=== PATIENT | female | born 1980 | race Caucasian/White ===

== ENCOUNTER 2025-01-18 10:30 | Emergency (ER) | payer MEDICAID ==
[~2025-01-18] VITALS: Ht 157.5 cm; Wt 72.7 kg
[2025-01-18 10:37] VITALS: TEMP 98.2
--- NOTE | 2025-01-18 10:50 | Physician Documentation ---
History of Present Illness ~ General Chief Complaint: Multiple Medical Complaints Stated Complaint: URINARY COMPLICATIONS Time Seen by MD: 11:23 History of Present Illness Initial Comments This is a 44-year-old female with a history of hypertension and frequent UTIs who presents with urinary discomfort and request for refill of antihypertensive medication. Patient reports that she is new to the area and unable to refill her previous prescription for high blood pressure and reports a headache that she believes is from high blood pressure, patient additionally reports urinary urgency and discomfort with urination. Patient reports no other acute symptoms or concerns including no fever or flank pain. Medication Reconciliation Allergies: Coded Allergies: hydromorphone (Verified Allergy, Unknown, 01/18/25) tramadol (Verified Allergy, Unknown, 01/18/25) Scheduled Cephalexin*Monohydrate* (Keflex*), 1 CAP PO QID Valsartan (Valsartan), 1 TAB PO DAILY Past Medical History Past Medical History: Hypertension, UTI Review of Systems ROS As stated above in the HPI, otherwise all systems are reviewed and negative. Physical Exam Physical Exam Vital Signs: Temperature: 98.2, Source: Temporal, Heart Rate: 98, Respiratory Rate: 16, BP: 203/121, Pulse Oximetry: 100, Weight: 72.700 Oxygen Flow Rate: 0 Physical Exam VITALS: Reviewed and as above. GENERAL: Alert, nontoxic appearing, no apparent distress. RESPIRATORY: No increased work of breathing, no respiratory distress, speaking in full clear sentences, clear lung sounds all aquino CV: Rate and rhythm no murmur BACK: No CVA tenderness GI: Nontender to palpation Progress Results/Orders Results/Orders Orders - EDGAR TERRY Cult Urine + [address] [address] (01/18/25 11:37) Completed Orders - EDGAR TERRY Hcg, Ur Ql (01/18/25 10:43) Ua W/Microscopic, Cult If Ind (01/18/25 10:44) Vital Signs 01/18/25 01/18/25 01/18/25 10:37 11:30 12:24 Temp 98.2 Pulse 98 88 79 Resp 16 16 6 B/P (MAP) 203/121 167/103 (124) 186/106 Pulse Ox 100 98 97 O2 Flow Rate 0 0 Laboratory Tests Test 01/18/25 10:44 Urine Specimen Description Cln catch midstream Urine Color Yellow Urine Clarity Clear Urine pH 6.0 Urine Specific [place] >=1.030 Urine Protein Negative Urine Glucose (UA) Negative Urine Ketones Negative Urine Occult Blood Negative Urine Nitrite Negative Urine Bilirubin Negative Urine Urobilinogen 0.2 Urine Leukocyte Esterase Trace H Urine RBC 3-10 Urine WBC 30-50 H Urine Squamous Epithelial Cells Moderate Urine Bacteria 1+ Urine Culture Indicated Indicated Volume Urine Centrifuged 10 ml Urine HCG, Qualitative Negative Urine Comment Microbiology Date/Time Source Procedure Growth Status 01/18/25 11:37 Urine Clean Catch Midstream Urine Culture - Preliminary Culture received. Resulted Medical Decision Making Findings This 44-year-old female with a history of hypertension and frequent UTIs presented with urinary discomfort and a request for refill of hypertensive medications, on triage patient's blood pressure was quite elevated though once placed in room blood pressure lowered without medication, as patient is on quite a high dose of valsartan and has not been on medication for some time I believe this to be caused of hypertension, while blood pressure is elevated it was not elevated to level that would constitute a hypertensive emergency. Additionally reassuring no other symptoms to suggest end-organ damage. Patient's physical exam was benign without abdominal tenderness or CVA tenderness. Urinalysis demonstrated evidence of urinary tract infection and with history and physical this is consistent with uncomplicated urinary tract infection, given no CVA tenderness or fever I have low suspicion for pyelonephritis. Patient will be treated with course of oral antibiotics and prescription for valsartan refilled. Patient is otherwise well-appearing and appropriate for outpatient follow up. Patient provided home care instructions, return to care precautions, and follow up instructions which she verbalized understanding of. Differential Diagnosis Hypertensive emergency, pyelonephritis, urolithiasis, STI, appendicitis, ovarian torsion, PID, urinary retention, urinary obstruction Departure Time of Disposition: 11:57 Disposition: 01 HOME / SELF CARE / HOMELESS Impression: Primary Impression: Urinary tract infection Qualified Codes: N30.00 - Acute cystitis without hematuria Additional Impressions: HTN (hypertension) Qualified Codes: I10 - Essential (primary) hypertension Medication refill Condition: Improved Discharge Instructions: Urinary Tract Infection, Adult Additional Instructions: Please take antibiotics as prescribed, please take your high blood pressure medication as previously prescribed. Please follow up with your primary care provider in the next few days. Please return to the emergency department for any new or worsening concerning symptoms. Referrals: NO PRIMARY CARE PROVIDER (PCP) Prescriptions Cephalexin*Monohydrate* (Keflex*) 500 Mg Capsule 1 CAP PO QID for 7 Days, #28 CAP Prov: EDGAR TERRY 01/18/25 Valsartan (Valsartan) 320 Mg Tablet 1 TAB PO DAILY for 30 Days, #30 TAB 0 Refills Prov: EDGAR TERRY 01/18/25 Education Educated: Patient Educated regarding: diagnosis, treatment, prognosis, need for follow up Signature Scribe Signature: No scribe Attestation: The note accurately reflects work and decisions made by me.OLYA Hung 01/19/25 09:35 EDGAR TERRY Jan 18, 2025 10:50
[2025-01-18 11:25] LABS: URINE HCG NEGATIVE (NEG)
[2025-01-18 11:28] LABS: LEUKOCYTE ESTERASE ,URINE TRACE (Neg); NITRITES, URINE NEGATIVE (Neg); OCCULT BLOOD,URINE NEGATIVE (Neg)
[2025-01-18 11:34] LABS: UA COLLECTION TYPE CLN CATCH MIDSTREAM
[2025-01-18 11:35] LABS: SQUAMOUS EPITHELIAL CELL,UR MODERATE /LPF (FEW)
[2025-01-18] MEDS ORDERED: CEPH-585 PO (12:04)
[2025-01-18] MEDS ORDERED: VALS320T17 PO (12:04)
[2025-01-18 12:24] VITALS: BP 186/106; PULSE 79; RESP 6; O2SAT 97
== END 2025-01-18 12:25 | disposition home or self-care (01) ==
LOC: ER 10:31
DX: N39.0 Urinary tract infection, site not specified (principal); I10 Essential (primary) hypertension; Z88.5 Allergy status to narcotic agent
CPT/HCPCS: 81001; 81025; 87088; 99283

== ENCOUNTER 2025-03-14 09:34 | Emergency (ER) | payer MEDICAID ==
[~2025-03-14] VITALS: Ht 157.5 cm; Wt 71.0 kg
[~2025-03-14 09:34] MED LIST: VALS320T17 PO
[2025-03-14 09:38] VITALS: BP 206/117; PULSE 106; RESP 18; O2SAT 100
--- NOTE | 2025-03-14 09:45 | Physician Documentation ---
HPI ~ General Chief Complaint: Medication Refill Stated Complaint: MED CLEARANCE HIGH BLOOD PRESSURE Time Seen by MD: 09:43 Primary Medical Doctor: NONE History of Present Illness HPI Comments 44-year-old female who presents to the emergency department seeking medical clearance to participate in [facility]. Reports that she is on 320 mg of valsartan however has not had her medications for 1-2 weeks. Has had intermittent episodes of vertigo without associated chest pain, palpitations dependent edema and/or syncope. Reports while on her medication she does well. She seeking medication refill. Medication Reconciliation Allergies: Coded Allergies: hydromorphone (Verified Allergy, Unknown, 03/14/25) tramadol (Verified Allergy, Unknown, 03/14/25) Scheduled Valsartan (Valsartan), 1 TAB PO DAILY Discontinued Medications Valsartan (Valsartan), 1 TAB PO DAILY Discontinued Reason: Prescription changed Past Medical History Past Medical History: Hypertension, UTI Review of Systems All Other Systems at this time: Reviewed and Negative Neurological: Reports: dizziness Physical Exam Physical Exam Vital Signs: RN Vital Signs have been reviewed: Yes, Temperature: 98.2, Source: Oral, Heart Rate: 106, Respiratory Rate: 18, BP: 206/117, Pulse Oximetry: 100, Weight: 71.000 Oxygen Flow Rate: 0 General Appearance: alert, WD/WN, no apparent distress Pupils/EOM/Fundus: PERRLA Neck: non-tender Respiratory: lungs clear Cardiovascular: normal peripheral pulses, regular rate, rhythm, no edema, no gallop, no JVD Back: normal inspection, no CVA tenderness Extremities: normal inspection Neurologic: oriented x4, auto leasing manager II-XII nml as tested Motor / Sensory: no motor deficit, no sensory deficit Thought/Hallucinations: normal thought pattern Affect: appropriate Skin: warm/dry Progress Results/Orders Results/Orders Vital Signs 03/14/25 09:38 Temp 98.2 Pulse 106 Resp 18 B/P (MAP) 206/117 Pulse Ox 100 O2 Flow Rate 0 Medical Decision Making Additional information obtaine: old records Findings 44-year-old female with a known history of poorly controlled high blood pressure. No current hypertensive urgency or emergency. We will provide patient is with medication request. She was discharged stable condition in the emergency department. Differential Dx:Considerations: Include: Adverse circumstances, Economic, Ps ychosocial, Medication refill, Medication non-compliance Departure Disposition: HOME / SELF CARE / HOMELESS Impression: Primary Impression: HTN (hypertension) Qualified Codes: I10 - Essential (primary) hypertension Additional Impression: Medication refill Condition: Stable Discharge Instructions: Medicine Refill at the Emergency Department Additional Instructions: Please obtain prescriptions and begin as directed. You have been Medically cleared & Best of luck with your program. Please establish with local primary care physician for additional management of high blood pressure. Thank you for visiting [facility] Emergency Department. Referrals: NO PRIMARY CARE PROVIDER (PCP) Prescriptions Valsartan (Valsartan) 320 Mg Tablet 1 TAB PO DAILY for 30 Days, #30 TAB 0 Refills Prov: MATTHEW KAPADIA 03/14/25 Education Educated: Patient Educated regarding: diagnosis, treatment Signature Scribe Signature: . Attestation: . MATTHEW KAPADIA Mar 14, 2025 09:45
[2025-03-14] MEDS ORDERED: VALS320T17 PO (09:46)
[2025-03-14 10:05] VITALS: TEMP 98.2
== END 2025-03-14 10:13 | disposition home or self-care (01) ==
LOC: ER 09:35
DX: I10 Essential (primary) hypertension (principal); Z88.5 Allergy status to narcotic agent; Z76.0 Encounter for issue of repeat prescription
CPT/HCPCS: 99282

== ENCOUNTER 2025-03-23 15:23 | Emergency (ER) | payer MEDICAID ==
[~2025-03-23] VITALS: Ht 157.5 cm; Wt 72.1 kg
[~2025-03-23 15:23] MED LIST changes: +HYDR12.55 PO; +LORA-269 PO; +NICO-731 TOP; +NITR0.4T51 SL
--- NOTE | 2025-03-23 15:47 | Physician Documentation ---
History of Present Illness ~ Chief Complaint: Medical Clearance Stated Complaint: MED CLEARANCE Time Seen by MD: 15:39 OK to notify your PCP?: Yes Primary Medical Doctor: NONE Source: patient Mode of Arrival: POV Exam Limitations: no limitations HPI Requesting medical clearance for hypertension for [facility]. She reports that her blood pressure is elevated and she was told she had to come here for clearance. She does take blood pressure medication valsartan as prescribed. She is awaiting an appointment with her primary care provider to have dose adjustment. She denies any headache, bloody nose, shortness of breath or chest pain. Reports that if she takes an Ativan for anxiety at typically lowers her blood pressure. Tetanus within 5 years?: Yes Medication Reconciliation Allergies: Coded Allergies: hydromorphone (Verified Allergy, Unknown, 03/23/25) tramadol (Verified Allergy, Unknown, 03/23/25) Scheduled Hydrochlorothiazide (Hydrochlorothiazide), 1 TAB PO DAILY Nicotine (Nicotine Patch), 1 PATCH TOP DAILY Valsartan (Valsartan), 1 TAB PO DAILY Scheduled PRN Lorazepam (Ativan), 1 TAB PO Q12H PRN PRN for anxiety Nitroglycerin SL* (Nitrostat SL*), 1 TAB SL UD PRN for chest pain Discontinued Medications Lorazepam (Ativan), 1 TAB PO Q12H PRN PRN for anxiety Discontinued Reason: Prescription changed Lorazepam (Ativan), 1 TAB PO Q12H PRN PRN for anxiety Past Medical History Past Medical History: Hypertension, UTI Review of Systems All Other Systems at this time: Reviewed and Negative Physical Exam Vital Signs: RN Vital Signs have been reviewed: Yes, Temperature: 97.2, Source: Temporal, Heart Rate: 100, Respiratory Rate: 18, BP: 195/103, Pulse Oximetry: 99, Weight: 72.100 Oxygen Flow Rate: 0 Pulse Oximetry Reflects: adequate oxygenation Physical Exam General: Alert, no distress. HEENT: No injection, moist mucous membranes. Neck: Full range of motion. Respiratory: No respiratory distress, equal chest rise and fall. Chest: No accessory muscle use. Cardiovascular: Regular rate and rhythm. Gastrointestinal: Nondistended. Extremities: Normal range of motion, no deformity. Neurologic: Oriented x4. Psychiatric: Normal mood and affect. Skin: Normal color, warm and dry. Progress Results/Orders Reviewed/noted all lab results: Yes Results/Orders Orders - NATTY BALLESTEROS Clonidine Tablet (Catapres Tablet) (03/23/25 15:40) Vital Signs 03/23/25 15:32 Temp 97.2 Pulse 100 Resp 18 B/P (MAP) 195/103 Pulse Ox 99 O2 Flow Rate 0 Medical Decision Making Additional information obtaine: old records Findings Pressure was elevated in triage. She is asymptomatic. She is taking valsartan as prescribed and awaiting an appointment with her doctor to have an adjustment of medications. [facility] which takes her blood pressure every morning and told her she had to come here to get cleared. I gave a 1 time dose of clonidine to help lower BP. Patient requested Ativan to help with her blood pressure, I declined. She is otherwise medically cleared to return to the program. Differential Dx:Considerations: Include: Intoxication-Alcohol, Intoxication- Other drug, Personality disorder, Substance abuse disorder, Alcohol withdrawl syndrom, Encephalopathy Departure Disposition: 01 HOME / SELF CARE / HOMELESS Impression: Primary Impression: General medical exam Condition: Stable Discharge Instructions: Medical Screening Exam Additional Instructions: Today your blood pressure was elevated in the ER but you are asymptomatic. We gave a 1 time dose of clonidine to help lower your blood pressure. Please fo llow up with her primary care provider regarding medication management next week. Return back here for any new or worsening symptoms. Referrals: NO PRIMARY CARE PROVIDER (PCP) Education Educated: Patient Educated regarding: diagnosis, treatment, prognosis, need for follow up Additional Comment Medical Screen Exam This patient recieved a medical screening examination. After reviewing the individual's medical complaints with presenting symptoms and performing an appropriate physical examination, it was determined that no immediate life- threatening emergency medical condition is present. This individual is also not a women having contractions. Signature Scribe Signature: . Attestation: Scribed for Natty Ballesteros by Natty Childress NP . 03/23/25 15:47 Parts of this note were created using [employer] voice recognition software program. While efforts were made to correct any mistakes made by this voice recognition software program, nonsensical phrases may remain in this note. In addition, there may be errors and syntax, grammar, content and spelling. NATTY BALLESTEROS Mar 23, 2025 15:47
[2025-03-23 17:20] VITALS: BP 139/90; PULSE 80; RESP 16; TEMP 97.2; O2SAT 99
[2025-03-24] MEDS ORDERED: HYDR25TA5 PO (18:38)
[2025-03-24] MEDS ORDERED: AMLO10TA PO (19:36)
[2025-04-10] MEDS ORDERED: CLOT10TR5 PO (13:05)
== END 2025-03-23 17:20 | disposition home or self-care (01) ==
LOC: ER 15:23
DX: Z00.00 Encounter for general adult medical examination without abnormal findings (principal); I10 Essential (primary) hypertension; Z88.5 Allergy status to narcotic agent; Z87.440 Personal history of urinary (tract) infections; Z79.899 Other long term (current) drug therapy
CPT/HCPCS: 99282; 99283

== ENCOUNTER 2025-03-24 18:04 | Emergency (ER) | payer MEDICAID ==
[~2025-03-24] VITALS: Ht 157.5 cm; Wt 73.2 kg
--- NOTE | 2025-03-24 18:17 | Physician Documentation ---
History of Present Illness ~ Chief Complaint: Hypertension Stated Complaint: BLOOD PRESSURE/ABD PAIN Time Seen by MD: 18:18 OK to notify your PCP?: Yes Primary Medical Doctor: NONE Source: patient Mode of Arrival: POV Exam Limitations: no limitations HPI Multiple medical complaints. Patient here for hypertension and possible low back pain. She takes valsartan daily. She was here yesterday for the same thing and treated with clonidine. She does have a prescription for lorazepam to help with her anxiety and took 1 today as well as a nitroglycerin to help lower her blood pressure. She denies any headache, bloody nose, chest pain or shortness of breath. She reports that she is at [employer] and they take her blood pressure every morning and it has been high multiple times this week. She has yet to see your primary care provider to have a medication adjustment. She reports having increased urinary urgency. No saddle anesthesia, loss of bowel or bladder. No known injuries to her low back but reports waking up and having low back pain which caused her legs to shake. Medication Reconciliation Allergies: Coded Allergies: hydromorphone (Verified Allergy, Unknown, 03/24/25) tramadol (Verified Allergy, Unknown, 03/24/25) Scheduled Amlodipine Besylate (Amlodipine Besylate), 1 TABLET PO DAILY Hydrochlorothiazide (Hydrochlorothiazide), 1 TAB PO DAILY Hydrochlorothiazide (Hydrochlorothiazide), 1 TAB PO DAILY Nicotine (Nicotine Patch), 1 PATCH TOP DAILY Valsartan (Valsartan), 1 TAB PO DAILY Scheduled PRN Lorazepam (Ativan), 1 TAB PO Q12H PRN PRN for anxiety Nitroglycerin SL* (Nitrostat SL*), 1 TAB SL UD PRN for chest pain Discontinued Medications Lorazepam (Ativan), 1 TAB PO Q12H PRN PRN for anxiety Discontinued Reason: Prescription changed Lorazepam (Ativan), 1 TAB PO Q12H PRN PRN for anxiety Past Medical History Past Medical History: Hypertension, UTI, Chronic Pain, Chronic Back Pain Past Surgical History: noncontributory Drug Use: methamphetamine Lives with: Other Lives In: Other Occupation: unemployed Review of Systems All Other Systems at this time: Reviewed and Negative Neurological: Reports: see HPI Physical Exam Vital Signs: RN Vital Signs have been reviewed: Yes, Temperature: 98.4, Source: Temporal, Heart Rate: 125, Respiratory Rate: 16, BP: 195/122, Pulse Oximetry: 9 8, Weight: 73.200 Oxygen Flow Rate: 0 Physical Exam General: Alert, no apparent distress. HEENT: moist mucous membranes. Neck: Full range of motion. Respiratory: No respiratory distress speaking in full sentences Chest: No accessory muscle use. Cardiovascular: Appears well perfused Neurologic: Oriented x4. Psychiatric: Anxious Skin: Normal color, warm and dry. No edema, no ecchymosis. Progress Results/Orders Results/Orders Completed Orders - TAMRA CABA [facility] STAFF PHARMACIST Urinalysis, Cult If Indicated (03/24/25 18:30) Clonidine Tablet (Catapres Tablet) (03/24/25 18:40) Cyclobenzaprine Tablet (Flexeril Tablet) (03/24/25 18:40) Amlodipine Tablet (Norvasc Tablet) (03/24/25 19:35) Medications Received in ER Medications (Trade) Dose Ordered Sig/Ji Route PRN Reason Start Time Stop Time Status Last Admin Dose Admin (Catapres tablet) 0.1 mg ONCE ONCE PO 03/24/25 18:40 03/24/25 18:41 DC 03/24/25 18:45 0.1 MG (Flexeril tablet) 10 mg ONCE ONCE PO 03/24/25 18:40 03/24/25 18:41 DC 03/24/25 18:45 10 MG (Norvasc tablet) 5 mg ONCE ONCE PO 03/24/25 19:35 03/24/25 19:36 DC 03/24/25 19:53 5 MG Vital Signs 03/24/25 03/24/25 03/24/25 03/24/25 18:08 18:23 18:23 19:01 Temp 98.4 Pulse 125 118 105 Resp 16 18 18 16 B/P (MAP) 195/122 179/122 (141) 182/112 (135) Pulse Ox 98 99 99 O2 Flow Rate 0 0 0 03/24/25 03/24/25 03/24/25 19:45 19:53 20:05 Pulse 80 112 86 Resp 16 18 B/P (MAP) 176/89 (118) 166/97 (120) Pulse Ox 99 99 Laboratory Tests Test 03/24/25 18:57 Urine Specimen Description Non-specified Urine Color Yellow Urine Clarity Clear Urine pH 6.5 Urine Specific [place] 1.015 Urine Protein Negative Urine Glucose (UA) Negative Urine Ketones Negative Urine Occult Blood Negative Urine Nitrite Negative Urine Bilirubin Negative Urine Urobilinogen 0.2 Urine Leukocyte Esterase Negative Urine Culture Indicated Not ind Volume Urine Centrifuged 10 ml Urine Comment Medical Decision Making Additional information obtaine: old records Findings Patient had an EKG in workup yesterday for the identical issue of hypertension. Patient is currently on 320 mg of valsartan daily and 12.5 mg of hydrochlorothiazide. Patient came in with a blood pressure in the 190s systolic at [employer] [employer] [facility] they check blood pressure twice a day. She has had to come in to be medically cleared with high blood pressure. Patient has history of hypertension. Patient denies headache dizziness chest pain or shortness of breath. Patient does have some pelvic pain chronic lumbar back pain she states she had a spinal fracture years ago. Patient is having pain when changing positions to standing having almost a spasm she describes in her groin in her lower extremities with standing started a couple of days ago. 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 It is advised to maintain appointment to establish primary care. As to your spasm type pain and chronic lumbar pain history continue to take Tylenol or ibuprofen as needed for [id number] pain. Referrals: NO PRIMARY CARE PROVIDER (PCP) Prescriptions Amlodipine Besylate (Amlodipine Besylate) 10 Mg Tablet 1 TABLET PO DAILY, #30 TABLET Prov: TAMRA CABA NP 03/24/25 Hydrochlorothiazide (Hydrochlorothiazide) 25 Mg Tab 1 TAB PO DAILY for 30 Days, #30 TAB 0 Refills Prov: TAMRA CABA [facility] STAFF PHARMACIST 03/24/25 Education Educated: Patient Educated regarding: diagnosis, treatment, need for follow up Additional Comment Medical Screen Exam This patient recieved a medical screening examination. After reviewing the ind ividual's medical complaints with presenting symptoms and performing an appropriate physical examination, it was determined that no immediate life- threatening emergency medical condition is present. This individual is also not a women having contractions. Signature Scribe Signature: No scribe Attestation: The note accurately reflects work and decisions made by me.Tamra Caba - OLYA 03/24/25 18:37 FERNIE WATTS Mar 24, 2025 18:17 TAMRA CABA NP Mar 24, 2025 18:38
[2025-03-24] MEDS ORDERED: HYDR25TA5 PO (18:38)
[2025-03-24 19:36] LABS: LEUKOCYTE ESTERASE ,URINE NEGATIVE (Neg); NITRITES, URINE NEGATIVE (Neg); OCCULT BLOOD,URINE NEGATIVE (Neg)
[2025-03-24] MEDS ORDERED: AMLO10TA PO (19:36)
[2025-03-24 19:42] LABS: UA COLLECTION TYPE NON-SPECIFIED
[2025-03-24 20:27] VITALS: BP 160/78; PULSE 80; RESP 16; TEMP 98.1; O2SAT 99
== END 2025-03-24 20:36 | disposition home or self-care (01) ==
LOC: ER 18:05
DX: I10 Essential (primary) hypertension (principal); F41.9 Anxiety disorder, unspecified; F15.90 Other stimulant use, unspecified, uncomplicated; Z88.5 Allergy status to narcotic agent
CPT/HCPCS: 81003; 99285

== ENCOUNTER 2025-03-30 09:51 | Emergency (ER) | payer MEDICAID ==
[~2025-03-30] VITALS: Ht 157.5 cm; Wt 72.7 kg
[~2025-03-30 09:51] MED LIST changes: +AMLO10TA PO; +HYDR25TA5 PO
[2025-03-30 09:57] VITALS: BP 138/83; PULSE 99; RESP 16; TEMP 98; O2SAT 98
[2025-04-10] MEDS ORDERED: CLOT10TR5 PO (13:05)
== END 2025-03-30 11:37 | disposition left against medical advice (07) ==
LOC: ER 09:51
DX: Z00.8 Encounter for other general examination (principal)
CPT/HCPCS: 99281

== ENCOUNTER 2025-03-31 19:58 | Emergency (ER) | payer MEDICAID ==
[~2025-03-31] VITALS: Ht 157.5 cm; Wt 72.7 kg
[2025-03-31 20:09] VITALS: TEMP 97.4
--- NOTE | 2025-03-31 20:55 | Physician Documentation ---
History of Present Illness General Chief Complaint: Shortness of Breath Stated Complaint: SOB Time Seen by MD: 20:47 Primary Medical Doctor: NONE History of Present Illness Initial Comments This is a 44-year-old female with a known history of asthma presents for evaluation of shortness a breath and wheezing. She feels this is similar to prior asthma exacerbations. No chest pain. Did not attempt to treat it because she states that she lives in the hotel and I have nothing. She worries that they have black mold in the bathroom and that is triggering her exacerbation. Denies any fever or chills. Denies any other symptoms. Medication Reconciliation Allergies: Coded Allergies: hydromorphone (Verified Allergy, Unknown, 03/31/25) tramadol (Verified Allergy, Unknown, 03/31/25) Scheduled Amlodipine Besylate (Amlodipine Besylate), 1 TABLET PO DAILY Hydrochlorothiazide (Hydrochlorothiazide), 1 TAB PO DAILY Hydrochlorothiazide (Hydrochlorothiazide), 1 TAB PO DAILY Nicotine (Nicotine Patch), 1 PATCH TOP DAILY Valsartan (Valsartan), 1 TAB PO DAILY Scheduled PRN Lorazepam (Ativan), 1 TAB PO Q12H PRN PRN for anxiety Nitroglycerin SL* (Nitrostat SL*), 1 TAB SL UD PRN for chest pain Past Medical History Past Medical History: Hypertension, UTI, Chronic Pain, Chronic Back Pain Past Surgical History: noncontributory Drug Use: methamphetamine Lives with: Other Lives In: Other Occupation: unemployed Review of Systems ROS 10 point review of systems was performed and unless noted above in HPI is neg ative for acute process/complaint. Physical Exam Physical Exam Vital Signs: Temperature: 97.4, Source: Temporal, Heart Rate: 116, Respiratory Rate: 18, BP: 131/86, Pulse Oximetry: 99, Weight: 72.700 Physical Exam GENERAL: Awake, alert, oriented, GCS 15, no apparent distress, non-toxic appearing, answers questions, follows commands appropriately. Examined in bed 4. HEENT: Atraumatic, normocephalic, pupils equal, extraocular muscles intact, sclerae anicteric, mucus membranes moist, oropharynx is clear, no stridor. NECK: supple, full active range of motion, trachea midline, no thyromegaly, no lymphadenopathy, no JVD. CARDIOVASCULAR: Tachycardic and regular rate/rhythm, no murmurs/gallops/rubs, Pulses are 2+ in all extremities and symmetric. Capillary refill less than 2 seconds. PULMONARY: Nonlabored, decreased air movement ,no respiratory distress, speaking in full sentences, faint bilateral expiratory wheezing, no ronchi, no rales, no accessory muscle use. GASTROINTESTINAL: Soft, non-tender, non-distended, normal active bowel sounds, no organomegaly, no pulsatile masses, no CVA tenderness. NEUROLOGIC: Lucid with normal mental status. Normal facial symmetry. Moves all extremities symmetrically and with purpose. No truncal ataxia. Speech is fluid without evidence of dysarthria or aphasia, no focal deficits appreciated. MUSCULOSKELETAL: There is full range of motion of all extremities. There is no joint pain or joint swelling or joint erythema. There is no muscle pain or tenderness or swelling. EXTREMITIES: warm, well-perfused, no cyanosis, no clubbing, no edema, no acute deformities. Skin: warm, dry, no rashes or lesions, no jaundice, no petechiae orpurpura. No ecchymosis. PSYCHIATRIC: Normal affect, normal insight, normal concentration. Focused exam: [] Progress Results/Orders Results/Orders Orders - OUMAR DIAMOND DO * Rt Notification Q1H (03/31/25 20:49) ESR (03/31/25 20:49) Chest,Single View (03/31/25 20:49) Hs Troponin I W Calculations (03/31/25 22:49) Covid19 Binax Poc Result Entry (03/31/25 20:49) Influenza Type A&B Rapid Test (03/31/25 20:49) Completed Orders - OUAMR DIAMOND DO Prednisone Tablet (Prednisone Tablet) (03/31/25 20:50) Albuterol 2.5mg/3ml Nebule (Proventil 2. (03/31/25 20:50) Electrocardiogram (03/31/25 20:49) Cbc/Diff (03/31/25 20:49) D-Dimer (03/31/25 20:49) C-Reactive Protein (03/31/25 20:49) Chest,Single View (03/31/25 20:49) CMP (03/31/25 20:49) Hs Troponin I W Calculations (03/31/25 20:49) Hcg, Ur Ql (03/31/25 21:17) Medications Received in ER Medications (Trade) Dose Ordered Sig/Ji Route PRN Reason Start Time Stop Time Status Last Admin Dose Admin (predniSONE tablet) 60 mg ONCE ONCE PO 03/31/25 20:50 03/31/25 20:52 DC 03/31/25 21:28 60 MG (Proventil 2.5 MG/3ML nebule) 10 mg ONCE ONCE NEB 03/31/25 20:50 03/31/25 20:52 DC 03/31/25 21:42 10 MG Vital Signs 03/31/25 03/31/25 03/31/25 03/31/25 20:09 21:31 21:46 21:55 Temp 97.4 Pulse 116 94 98 Resp 18 17 18 18 B/P (MAP) 131/86 136/81 (99) Pulse Ox 99 100 98 O2 Delivery Room Air* O2 Flow Rate 0 0 FiO2 21 03/31/25 21:57 Pulse 106 Resp 18 Pulse Ox 100 O2 Delivery Room Air* O2 Flow Rate 0 FiO2 21 Laboratory Tests Test 03/31/25 21:13 03/31/25 21:18 White Blood Count 13.2 H Red Blood Count 4.40 Hemoglobin 13.0 Hematocrit 38.0 Mean Corpuscular Volume 86.4 Mean Corpuscular Hemoglobin 29.6 Mean Corpuscular Hemoglobin Concent 34.3 Red Cell Distribution Width 13.8 Platelet Count 351 Mean Platelet Volume 8.2 Neutrophils (%) (Auto) 69.1 Lymphocytes (%) (Auto) 22.7 Monocytes (%) (Auto) 6.7 Eosinophils (%) (Auto) 1.1 Basophils (%) (Auto) 0.4 Neutrophils # (Auto) 9.1 H Lymphocytes # (Auto) 3.0 Monocytes # (Auto) 0.9 Eosinophils # (Auto) 0.1 Basophils # (Auto) 0.1 CBC Comment D-Dimer 0.36 D-Dimer Comment Sodium Level 139 Potassium Level 4.1 Chloride Level 104 Carbon Dioxide Level 29.0 Anion Gap 6 L Blood Urea Nitrogen 21 H Creatinine 0.93 H Estimated GFR/1.73 m2 65 BUN/Creatinine Ratio 22.6 H Glucose Level 104 Calcium Level 9.0 Total Bilirubin 0.2 Aspartate Amino Transf (AST/SGOT) 18 Alanine Aminotransferase (ALT/SGPT) 32 Alkaline Phosphatase 123 H Troponin I High Sensitivity 5 C-Reactive Protein 2.63 H Total Protein 7.5 Albumin 3.5 Globulin 4.0 Albumin/Globulin Ratio 0.9 L Chemistry Comments Urine HCG, Qualitative Negative Medical Decision Making Additional information obtaine: N/A Findings Facility Status: ED Holds, RME process The plan was discussed with the patient, who demonstrates clear understanding of the plan and is in agreement with the plan unless otherwise noted in the chart. All questions have been answered, all concerns were addressed unless otherwise documented. I was available throughout their ED stay for frequent reassessment and questions. Differential Diagnoses (considered and possible or likely): [Asthma/COPD exacerbation, bronchitis, COVID, influenza, RSV, less likely ACS, less likely bacterial pneumonia, less likely CHF, unlikely PE] ??Differential Diagnoses (considered and unlikely, not requiring evaluation currently): [See above. No evidence of trauma, pneumothorax is unlikely.] MDM Data Please see [facility] for the following: Independent Historians and external Records Review. Historian: [Patient] Independent Historians: ?[None] Medication Management: [Reviewed medication list] Social History and determinants: [Reviewed] Please see the body of the note for the following: Any independent interpret ations of ECG, imaging studies. All vitals signs/haemodynamics, ordered tests were independently reviewed and interpreted by myself. Nursing triage complaint and vitals reviewed, additional nursing notes were reviewed as available and I agree unless otherwise noted or documented in contradiction in the chart Vital Signs: Independently reviewed Labs: Independently interpreted Imaging: Independently interpreted Old Medical Records: Independently reviewed, see HPI for relevant summary and information Pulse Oximetry: [96%] interpreted as [normal on room air] by me [Casing Blower: Tachycardic Rate, Regular rhythm, no ectopy, sinus t achycardia. reviewed and interpreted by me] Additionally notably showing: [Hemodynamics reviewed. Not febrile, initially tachycardic, improved with the rest and fluids, no evidence of respiratory distress. CBC shows mild leukocytosis, no neutrophilic predominance. D-dimer is negative, decreased suspicion for PE. Chemistry shows elevated CRP, dehydration, normal troponin. She is not . ] Tests considered but not ordered include: [She is low risk for PE, CTA has been considerably but most likely weekend determine risk of PE by getting D-dimer] Social Determinants of Health Impact: [facility] [place] with limited access to healthcare due to below par ratio of patient to medical providers. [] Comorbid Conditions Impacting Present Evaluation and Care/Treatment: [COPD/asthma] Management Discussions with other Healthcare Providers: [None] Treatment and Disposition Medication Management (Given or considered): [Steroids and breathing treatment]. See EMR for details Consideration for Hospitalization/Escalation/Deescalation of Care: Admission for observation has been considered, [however the patient is able to tolerate p.o., their symptoms are controlled, they are able to rely on oral medications, and their chief complaint/diagnosis can be managed on outpatient basis.] ?ED Course:?[The patient improved after breathing treatment.] ?Shared decision making:?[Patient is hemodynamically stable for discharge home with follow with their primary care provider. [ ] Specific and cautious return precautions provided and discussed with full understanding. Any incidental findings were also discussed and follow up recommendations given. [] All questions answered. Patient/family were able to verbalize back return precautions. Patient/family agree to plan. Copies of imaging and laboratory studies were provided.] Code status:?FULL Please see the full Electronic Medical Record for full details of nursing documentation, medications list, other records of complete past medical history and conditions, vital signs, laboratory studies, and any radiologic study interpretations by radiologists. Portions of this note were completed using [employer] dictation software and as a result there may exist minor errors in spelling. I have reviewed elements of past family and social history and agree as included in note. Differential Diagnosis See body of the main note for differential diagnosis Departure Disposition: 01 HOME / SELF CARE / HOMELESS Impression: Primary Impression: Asthma exacerbation Condition: Improved Discharge Instructions: Asthma, Adult, [id number] Referrals: NO PRIMARY CARE PROVIDER (PCP) Prescriptions Albuterol Sulfate (Ventolin Hfa) 90 Mcg Hfa.aer.ad 2 PUFFS INH Q4HPRN PRN for wheezing for 30 Days, #18 GM 0 Refills Prov: OUMAR DIAMOND DO 04/01/25 Prednisone (Prednisone) 10 Mg Tablet 0 PO DAILY, #42 TABLET Take 6 tabs/day x2 days then 5 daily x2 days 4 daily x2 days 3 daily x2 days 2 daily x2 days 1 daily x2 days then stop. Prov: OUMAR DIAMOND DO 04/01/25 Education Educated: Patient Educated regarding: diagnosis, treatment, prognosis, need for follow up Signature Scribe Signature: No scribe Attestation: The note accurately reflects work and decisions made by me.Oumar Diamond, 03/31/25 20:55 OUMAR DIAMOND DO Mar 31, 2025 20:55
--- NOTE | 2025-03-31 21:14 | ELECTROCARDIOGRAPH REPORT ---
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 CARRIE Bean Measurements Intervals [place] Rate: 105 P: 60 [place]: 143 QRS: 42 QRSD: 73 T: 37 QT: 333 QTc: 441 Interpretive Statements Sinus tachycardia Anteroseptal infarct, old Electronically Signed On 04-02-2025 9:36:[address] CARRIE Bean Please click the below link to view image of tracing.
--- NOTE | 2025-03-31 21:24 | RADIOLOGY REPORT ---
EXAM: DI CHEST,SINGLE VIEW HISTORY: sob TECHNIQUE: 1 view of the chest COMPARISON: None FINDINGS/IMPRESSION: LUNGS: No pleural effusion, consolidation, or pneumothorax. MEDIASTINUM: Unremarkable. BONES: No acute osseous abnormality. OTHER: None.
[2025-03-31 21:42] LABS: MEAN PLATELET VOLUME 8.2 FL (7.4-10.4); RED CELL DISTRIBUTION WIDTH 13.8 % (11.5-14.5)
[2025-03-31] MEDS: albuterol 2.5 MG/3 ML nebule NEB ONE (21:42)
[2025-03-31 21:46] VITALS: PULSE 94; RESP 18; O2SAT 100
[2025-03-31 21:52] LABS: URINE HCG NEGATIVE (NEG)
[2025-03-31 21:55] VITALS: BP 136/81
[2025-03-31 21:56] LABS: CREATININE 0.93 MG/DL (0.40-0.90); TOTAL CARBON DIOXIDE 29.0 MMOL/L (24-32); eCRCL 60 ML/MIN; eGFR 65 ML/MIN
[2025-03-31 21:57] VITALS: PULSE 106; RESP 18; O2SAT 100
[2025-04-01] MEDS ORDERED: PRED10TA23 PO (03:12)
[2025-04-01] MEDS ORDERED: ALBU18HF2 INH (03:12)
== END 2025-04-01 03:20 | disposition home or self-care (01) ==
LOC: ER 19:58
DX: J45.901 Unspecified asthma with (acute) exacerbation (principal); I10 Essential (primary) hypertension; F15.90 Other stimulant use, unspecified, uncomplicated; Z88.5 Allergy status to narcotic agent; Z87.440 Personal history of urinary (tract) infections
CPT/HCPCS: 36415; 71045; 80053; 81025; 84484; 85025; 85379; 85651; 86140; 93005; 94640; 99285; J7512; 94760

== ENCOUNTER 2025-04-03 15:40 | Emergency (ER) | payer MEDICAID ==
[~2025-04-03] VITALS: Ht 157.5 cm; Wt 72.0 kg
[~2025-04-03 15:40] MED LIST changes: +ALBU18HF2 INH; +PRED10TA23 PO
[2025-04-03 15:51] VITALS: BP 144/81; PULSE 98; RESP 18; TEMP 97; O2SAT 100
[2025-04-03] MEDS ORDERED: LORA-269 PO (22:05)
[2025-04-03] MEDS ORDERED: AZIT-164 PO (22:05)
== END 2025-04-03 20:03 | disposition left against medical advice (07) ==
LOC: ER 15:41
DX: R05.9 Cough, unspecified (principal); R68.89 Other general symptoms and signs; Z53.21 Procedure and treatment not carried out due to patient leaving prior to being seen by health care provider; Z88.5 Allergy status to narcotic agent
CPT/HCPCS: 99281

== ENCOUNTER 2025-04-03 19:36 | Emergency (ER) | payer MEDICAID ==
[~2025-04-03] VITALS: Ht 157.5 cm; Wt 73.4 kg
--- NOTE | 2025-04-03 20:01 | ELECTROCARDIOGRAPH REPORT ---
[facility] Test Date: 2025-04-03 Test Time: 19:59:43 Pat Name: NALINI HERNANDEZ Department: EMERGENCY ROOM [id number] Room: Gender: F Supervisor [employer]: : 1980 Requested By: DEMIAN BLAIR Order Number: [id number] Reading MD: Dr. CARRIE Bean Measurements Intervals [place] Rate: 96 P: 37 NE: 139 QRS: 33 QRSD: 81 T: 45 QT: 347 QTc: 439 Interpretive Statements Sinus rhythm Anteroseptal infarct, old Electronically Signed On 04-05-2025 18:09:[address] CARRIE Bean Please click the below link to view image of tracing.
--- NOTE | 2025-04-03 20:54 | RADIOLOGY REPORT ---
EXAM: DI CHEST,SINGLE VIEW TECHNIQUE: Single frontal chest radiograph CLINICAL HISTORY: CP COMPARISON: DI CHEST,SINGLE VIEW on DOS: 03/31/25 FINDINGS/IMPRESSION: The lungs are clear. The cardiomediastinal silhouette is unremarkable. No pleural effusion or pneumothorax. No acute osseous abnormality.
[2025-04-03] MEDS ORDERED: LORA-269 PO (22:05)
[2025-04-03] MEDS ORDERED: AZIT-164 PO (22:05)
--- NOTE | 2025-04-03 22:06 | Physician Documentation ---
History of Present Illness ~ Chief Complaint: Shortness of Breath Stated Complaint: CHEST INFECTION Time Seen by MD: 21:39 Primary Medical Doctor: None Mode of Arrival: POV HPI Patient presents to the emergency room with chief complaint of 3-4 day history of cough. No fevers. Paced on prednisone. She smokes. History of asthma. Patient also states that she has been prescribed Ativan for her anxiety that has running out she is at [facility] [place] Medication Reconciliation Allergies: Coded Allergies: hydromorphone (Verified Allergy, Unknown, 04/03/25) tramadol (Verified Allergy, Unknown, 04/03/25) Scheduled Amlodipine Besylate (Amlodipine Besylate), 1 TABLET PO DAILY Hydrochlorothiazide (Hydrochlorothiazide), 1 TAB PO DAILY Hydrochlorothiazide (Hydrochlorothiazide), 1 TAB PO DAILY Nicotine (Nicotine Patch), 1 PATCH TOP DAILY Prednisone (Prednisone), 0 PO DAILY Valsartan (Valsartan), 1 TAB PO DAILY Scheduled PRN Albuterol Sulfate (Ventolin Hfa), 2 PUFFS INH Q4HPRN PRN for wheezing Lorazepam (Ativan), 1 TAB PO Q12H PRN PRN for anxiety Nitroglycerin SL* (Nitrostat SL*), 1 TAB SL UD PRN for chest pain Past Medical History Past Medical History: Hypertension, UTI, Chronic Pain, Chronic Back Pain Past Surgical History: noncontributory Drug Use: methamphetamine Lives with: Other Lives In: Other Occupation: unemployed Review of Systems ROS All review of systems negative except as per HPI Physical Exam Vital Signs: Temperature: 98.1, Source: Oral, Heart Rate: 103, Respiratory Rate: 20, BP: 158/82, Pulse Oximetry: 99, Weight: 73.360 Oxygen Flow Rate: 0 Physical Exam General: Patient is awake, alert, oriented x4 in no acute distress and well appearing.~ Head: Normocephalic and atraumatic. Eyes: Conjunctival normal. EOMI. PERRL. ENT: Mucous membranes moist. Neck: Supple, trachea is midline. Chest: Clear to auscultation bilaterally without rales, rhonchi, or wheezes. There is no accessory muscle use or retractions. Cardiac: RRR without murmurs, gallops, or rubs. . Progress Results/Orders Results/Orders Orders - JOSE FOSTER MD Chest,Single View (04/03/25 20:19) Monitor (04/03/25 19:56) Saline Lock (04/03/25 19:56) Oxygen (04/03/25 19:56) Completed Orders - JOSE FOSTER MD Chest,Single View (04/03/25 20:19) Electrocardiogram (04/03/25 19:56) Vital Signs 04/03/25 04/03/25 19:47 21:37 Temp 98.1 Pulse 103 Resp 18 20 B/P (MAP) 158/82 Pulse Ox 99 O2 Flow Rate 0 EKG/XRAY/CT/US/VASC/MRI EKG : Additional Comment EKG interpreted by myself shows time of 1958, rate 96, sinus rhythm, normal axis, no ST changes Medical Decision Making Additional information obtaine: old records Findings Patient presents to the emergency room for evaluation of cough. Differentials include but are not limited to pneumonia, viral syndrome, reflux. He has been patient's risk factors we will provide a Z-Lazaro. The patient does exhibit pressured speech. We will give her a small amount of Ativan. Heart Score: 1 Differential Dx:Considerations: Include: anxiety, asthma, bronchitis, cardiogenic shock, CHF, COPD, dysrhythmia, hypertension, accelerated, hypertension, essential, hypertension, malignant, hyperventilation, hyponatremia, myocardial infarction, panic attack, pneumonia, pneumonitis, pneumothorax, PSVT, pulmonary embolism, respiratory distress, respiratory failure, sinusitis, upper resp. infection, other Departure Disposition: 01 HOME / SELF CARE / HOMELESS Impression: Primary Impression: Cough Condition: Stable Discharge Instructions: Upper Respiratory Infection, Adult Additional Instructions: Stopped smoking Referrals: NO PRIMARY CARE PROVIDER (PCP) Prescriptions Azithromycin (Zithromax) 250 Mg Tablet 250 MG PO DAILY, #6 TAB Take 2 tabs on day one, one tab daily thereafter Prov: JOSE FOSTER MD 04/03/25 Lorazepam (Ativan) 1 Mg Tablet 1 TAB PO Q8H for anxiety, #7 TAB 0 Refills Prov: JOSE FOSTER MD 04/03/25 Signature Scribe Signature: No scribe Attestation: The note accurately reflects work and decisions made by me.Jose Foster MD 04/03/25 22:06 JOSE FOSTER MD Apr 03, 2025 22:06
[2025-04-03 22:23] VITALS: BP 150/80; PULSE 99; RESP 18; TEMP 98.6; O2SAT 99
== END 2025-04-03 22:24 | disposition home or self-care (01) ==
LOC: ER 19:37
DX: R05.9 Cough, unspecified (principal); F17.200 Nicotine dependence, unspecified, uncomplicated; F41.9 Anxiety disorder, unspecified; I10 Essential (primary) hypertension; J45.909 Unspecified asthma, uncomplicated; Z87.440 Personal history of urinary (tract) infections; Z88.5 Allergy status to narcotic agent; Z88.8 Allergy status to other drugs, medicaments and biological substances
CPT/HCPCS: 71045; 93005; 99283

== ENCOUNTER 2025-04-13 14:39 | Emergency (ER) | payer MEDICAID ==
[~2025-04-13] VITALS: Ht 157.5 cm; Wt 75.9 kg
[~2025-04-13 14:39] MED LIST changes: +AZIT-164 PO; +CLOT10TR5 PO
[2025-04-13 14:52] VITALS: BP 136/85; PULSE 117; O2SAT 99
--- NOTE | 2025-04-13 15:06 | Physician Documentation ---
History of Present Illness Chief Complaint: See Chief Complaint Stated Complaint: MULTIPLE MED COMPLAINTS Primary Medical Doctor: None HPI Patient is a 44-year-old female that presents to the emergency department for complaints of vaginal anal discomfort and rash. Patient reports that the discomfort seems to be coming from an internal source in her lower abdomen. Patient also reports a thrush on her tongue and surrounding gum tissue. That is causing her significant discomfort at this time. Patient reports fevers chills possibly when she dry heaves. Patient reports that she just completed a course of antibiotics for bronchitis did made her thrush worse and caused her vagina and anus to be significantly painful at this time. Patient denies discharge from the anus or vagina at this time. Patient reports that she has had sexual activity in the last year although she has an IUD and does not believe that there is any possibility she could be as the IUD has been in for 15 years and has had no issues. Patient headache chest pain shortness of breath dizziness or lightheadedness at this time. Medication Reconciliation Allergies: Coded Allergies: hydromorphone (Verified Allergy, Unknown, 04/13/25) tramadol (Verified Allergy, Unknown, 04/13/25) Scheduled Amlodipine Besylate (Amlodipine Besylate), 1 TABLET PO DAILY Azithromycin (Zithromax), 250 MG PO DAILY Clotrimazole (Clotrimazole), 1 TAB PO 5XD Hydrochlorothiazide (Hydrochlorothiazide), 1 TAB PO DAILY Hydrochlorothiazide (Hydrochlorothiazide), 1 TAB PO DAILY Lorazepam (Ativan), 1 TAB PO Q8H Nicotine (Nicotine Patch), 1 PATCH TOP DAILY Nystatin (Nystatin), 5 ML PO Q6H Prednisone (Prednisone), 0 PO DAILY Valsartan (Valsartan), 1 TAB PO DAILY Scheduled PRN Albuterol Sulfate (Ventolin Hfa), 2 PUFFS INH Q4HPRN PRN for wheezing Lorazepam (Ativan), 1 TAB PO Q12H PRN PRN for anxiety Nitroglycerin SL* (Nitrostat SL*), 1 TAB SL UD PRN for chest pain Discontinued Medications Cephalexin*Monohydrate* (Keflex*), 1 CAP PO Q8H Past Medical History Past Medical History: Hypertension, UTI, Chronic Pain, Chronic Back Pain Past Surgical History: noncontributory Drug Use: methamphetamine Lives with: Other Lives In: Other Occupation: unemployed Review of Systems ROS As stated above in the HPI, otherwise all systems are reviewed and negative. Physical Exam Vital Signs: Temperature: 98.3, Source: Temporal, Heart Rate: 117, Respiratory Rate: 16, BP: 136/85, Pulse Oximetry: 99, Weight: 75.900 Oxygen Flow Rate: 0 Physical Exam VITALS: Reviewed and as above. GENERAL: Alert, no apparent distress. HEENT: Normocephalic, atraumatic, PERRL, EOMI, dry mucosa, no erythema RESPIRATORY: Lungs clear, normal breath sounds, no respiratory distress. CHEST: No accessory muscle use, no retractions CV: Regular rate, rhythm, no edema, no murmur, No: JVD GI: Soft, mild tenderness to the lower abdomen bilaterally, bowels sounds present, no rebound, guarding, or rigidity BACK: No CVA tenderness, or swelling MUSCULOSKELETAL No deformities, no edema SKIN: Warm and dry, no rash NEURO: Oriented x4, No motor or sensory deficit PSYCH: Normal mood and affect, no agitation Progress Results/Orders Results/Orders Vital Signs 04/13/25 14:52 Temp 98.3 Pulse 117 Resp 16 B/P (MAP) 136/85 Pulse Ox 99 O2 Flow Rate 0 Medical Decision Making Additional information obtaine: other Findings Chief Complaint: Vaginal and anal discomfort, rash, oral thrush, fevers, and chills. History of Present Illness: 44-year-old female presented to the emergency department with complaints of vaginal and anal discomfort, rash, and oral thrush. Patient reports discomfort appears to originate internally from lower abdomen. She describes significant discomfort from thrush affecting tongue and gum tissue. Associated symptoms include fevers, chills, and dry heaving. Patient recently completed course of antibiotics for bronchitis, after which thrush worsened with significant pain in vaginal and anal areas. Denies vaginal or anal discharge. Sexual activity within past year. IUD in place for 15 years without prior issues. Denies possibility of . Denies headache, chest pain, shortness of breath, dizziness, or lightheadedness. Medical Decision Making: Number of Diagnoses/Management Options: Moderate complexity. Multiple diagnoses considered including vulvovaginal candidiasis, oral candidiasis (thrush), and perianal candidal infection, all likely antibiotic-associated. Differential diagnosis included bacterial vaginosis, trichomoniasis, and cervicitis, though clinical presentation more consistent with candidiasis given recent antibiotic use and oral thrush. [3-4] Amount/Complexity of Data: Moderate complexity. Clinical diagnosis of vulvovaginal candidiasis made based on symptoms of vaginal discomfort and irritation in setting of recent antibiotic use. Oral candidiasis diagnosed clini marion based on visible thrush on tongue and gum tissue with associated pain. While wet mount with saline and 10% JOSR would ideally confirm presence of yeast or hyphae and normal vaginal pH (4.0-4.5), clinical presentation strongly suggestive of uncomplicated candidiasis. Patient's recent antibiotic course for bronchitis is well-established risk factor for candidal overgrowth. [1-2][4-5] Risk of Complications: Moderate risk. Patient presents with systemic symptoms (fevers, chills, dry heaving) in setting of multisite candidal infection. While uncomplicated vulvovaginal candidiasis typically responds well to treatment with >90% response rates to short-course therapy, presence of oral thrush and perianal involvement suggests more extensive candidal colonization. [1] Constitutional symptoms warrant consideration of more severe infection, though patient denies symptoms suggesting invasive candidiasis or upper genital tract infection. [6] IUD Consideration: Patient has IUD in place for 15 years, which exceeds typical recommended duration for most IUD devices. While IUD itself is not contraindication to treatment of vulvovaginal candidiasis, prolonged IUD placement warrants discussion of removal and replacement. No evidence of current pelvic inflammatory disease based on absence of purulent cervical discharge and patient denial of abnormal vaginal discharge. [7] Assessment and Plan: Uncomplicated vulvovaginal candidiasis, antibiotic-associated: Treated with fluconazole 150 mg PO single dose per Infect[employer] Diseases Society of [place] guidelines. Alternative would be topical antifungal agents, though oral therapy preferred given multisite involvement and patient convenience. Patient counseled that clinical cure rates exceed 90% with single-dose fluconazole. [1][4][8] Oral candidiasis (thrush): Treated with nystatin oral suspension 4-6 mL (400,000-600,000 units) four times daily. Patient instructed to retain medication in mouth as long as possible and continue for at least 2 days after symptoms resolve. [2] Perianal candidal infection: Expected to respond to systemic fluconazole therapy. Patient counseled on importance of keeping area clean and dry. IUD - prolonged placement: Discussed with patient that IUD has been in place for 15 years, exceeding typical duration. Recommended follow-up with gynecology for IUD removal and replacement. No evidence of IUD-related infection at this time. [7] Constitutional symptoms: Fevers and chills likely related to extent of candidal infection. Patient counseled to return if symptoms worsen or fail to improve within 48-72 hours, or if develops severe abdominal pain, abnormal vaginal discharge, or other concerning symptoms. Disposition: Discharged home in stable condition with prescriptions for fluconazole and nystatin oral suspension. Follow-up with primary care provider in 1-2 weeks if symptoms persist. Gynecology referral for IUD management. [4] Patient instructed to return to emergency department for worsening symptoms, high fever, severe abdominal pain, or any other concerning symptoms. Overall Level of Medical Decision Making: Moderate complexity based on multiple diagnoses, moderate data complexity, and moderate risk of complications. Differential Dx:Considerations: Other Departure Disposition: 01 HOME / SELF CARE / HOMELESS Impression: Primary Impression: Abdominal pain Additional Impressions: Vaginal discomfort Anal pain Thrush of mouth and esophagus Condition: Stable Additional Instructions: Your Diagnosis You were seen in the emergency department today for oral thrush (a yeast infection in your mouth) and vaginal/anal discomfort. These symptoms developed after you recently took antibiotics for bronchitis. Antibiotics can sometimes kill the good bacteria in your body, allowing yeast to overgrow and cause infection. Your Medications You have been prescribed nystatin swish and swallow liquid to treat the thrush in your mouth. [1] How to use nystatin: Take 4-6 mL (about 1 teaspoon) four times per day Swish the liquid around in your mouth for as long as possible before swallowing Try to keep it in your mouth for at least 1-2 minutes if you can Continue taking this medication for 7-14 days, or until at least 2 days after your symptoms go away [1] Do not eat or drink for 30 minutes after using the medication to allow it to work What to Expect Your symptoms should start to improve within a few days of starting treatment. The white patches in your mouth should gradually decrease, and the pain should lessen. Follow-Up Care Schedule an appointment with your primary care doctor within 1-2 weeks Your doctor needs to check on your IUD, which has been in place for 15 years (longer than typically recommended) Your doctor can also make sure your thrush and other symptoms are improving When to Return to the Emergency Department Come back to the emergency department or call 911 if you develop any of these sy mptoms: High fever (temperature over 101F or 38.3C) Severe abdominal pain Inability to eat or drink due to mouth pain Difficulty swallowing or breathing Vaginal or anal discharge, especially if it has a bad smell Worsening pain in your vaginal or anal area Any other symptoms that concern you Prevention Tips To help prevent yeast infections in the future: If you need to take antibiotics again, ask your doctor about taking probiotics Keep your mouth clean by brushing your teeth twice daily Drink plenty of water (about 8 glasses per day) [2] If you use an inhaler with steroids, rinse your mouth with water after each use [2] Important Reminders Take all of your nystatin medication as prescribed, even if you start feeling better Your symptoms developed because antibiotics disrupted the normal balance of bacteria and yeast in your body This is a common problem and should improve with treatment Referrals: NO PRIMARY CARE PROVIDER (PCP) Prescriptions Cyclobenzaprine* (Cyclobenzaprine*) 10 Mg Tablet 1 TAB PO HS for muscle spasms for 10 Days, #20 TAB 0 Refills Prov: GERBER GIRON 04/13/25 Nystatin (Nystatin) 100,000 Unit/Ml Oral.susp 5 ML PO Q6H for 10 Days, #200 ML Prov: GERBER GIRON 04/13/25 Education Educated: Patient Educated regarding: diagnosis, treatment, need for follow up Signature Scribe Signature: A Attestation: Scribed for Gerber Giron by OYLA Hendricks . 04/13/25 20:47 GERBER GIRON Apr 13, 2025 15:06
[2025-04-13 18:40] LABS: MEAN PLATELET VOLUME 7.6 FL (7.4-10.4); RED CELL DISTRIBUTION WIDTH 13.9 % (11.5-14.5)
[2025-04-13 18:51] LABS: LEUKOCYTE ESTERASE ,URINE NEGATIVE (Neg); NITRITES, URINE NEGATIVE (Neg); OCCULT BLOOD,URINE NEGATIVE (Neg)
[2025-04-13 18:52] LABS: UA COLLECTION TYPE NON-SPECIFIED
[2025-04-13 18:56] LABS: CREATININE 0.89 MG/DL (0.40-0.90); TOTAL CARBON DIOXIDE 31.5 MMOL/L (24-32); eCRCL 63 ML/MIN; eGFR 69 ML/MIN
[2025-04-13 18:58] VITALS: RESP 16
[2025-04-13] MEDS: ketorolac trometh 30MG/ML vial 30 MG/ML VIAL IM ONE (18:58)
[2025-04-13] MEDS: ketorolac trometh 15mg/ml vial 15 MG/ML ML IM ONE (19:15)
[2025-04-13 19:54] LABS: URINE HCG NEGATIVE (NEG)
[2025-04-13] MEDS ORDERED: CEPH-585 PO (20:25)
--- NOTE | 2025-04-13 20:25 | RADIOLOGY REPORT ---
EXAM: CT CT ABDOMEN PELVIS INDICATION: Pain significant pressure of the bladder and anus TECHNIQUE: Volumetric multidetector CT images of the abdomen and pelvis were obtained without contrast. All CT scans at this facility use dose modulation, iterative reconstruction, and/or weight based dosing when appropriate to reduce radiation dose to as low as reasonably achievable. COMPARISON: None FINDINGS: [LOWER CHEST]: Small 1-2 mm micro nodules in the left lower lobe. The cardiac size is normal without pericardial effusion. [LIVER]: Severe hepatomegaly. [GALLBLADDER AND BILIARY TREE]: Gallbladder is surgically absent. [SPLEEN]: Unremarkable. [PANCREAS]: Unremarkable. [ADRENAL GLANDS]: Unremarkable [KIDNEYS]: No hydronephrosis. No nephroureterolithiasis. No suspicious focal lesion. [BLADDER]: Unremarkable for the degree distention. [REPRODUCTIVE ORGANS]: IUD in place in the pelvis with small calcification of the level of the upper vaginal canal cervix. [BOWEL/MESENTERY]: At least moderate stool burden. Normal appendix. Stomach is normal. No CT evidence of bowel obstruction. [ASCITES]: Absent [LYMPHADENOPATHY]: No pathologically enlarged lymph nodes by CT size criteria [VASCULATURE]: No aneurysmal dilatation. [ABDOMINAL WALL]: Unremarkable. [MUSCULOSKELETAL]: No acute fracture or aggressive focal osseous lesion. Multifocal degenerative change of the visualized spine. IMPRESSION: 1. No acute abdominopelvic pathology identified. 2. Severe hepatomegaly. 3. At least moderate stool burden. 4. Correlate for constipation.
[2025-04-13] MEDS ORDERED: NYST100069 PO (20:46)
[2025-04-13 20:52] VITALS: TEMP 98.3
[2025-04-13] MEDS ORDERED: CYCL-1 PO (20:52)
== END 2025-04-13 20:53 | disposition home or self-care (01) ==
LOC: ER 14:39
DX: K62.89 Other specified diseases of anus and rectum (principal); B37.0 Candidal stomatitis; B37.81 Candidal esophagitis; G89.29 Other chronic pain; I10 Essential (primary) hypertension; F15.90 Other stimulant use, unspecified, uncomplicated; Z79.899 Other long term (current) drug therapy; Z88.5 Allergy status to narcotic agent; Z88.8 Allergy status to other drugs, medicaments and biological substances; Z87.440 Personal history of urinary (tract) infections; Z56.0 Unemployment, unspecified
CPT/HCPCS: 36415; 74176; 80053; 81003; 81025; 83605; 85025; 87491; 87591; 96372; 99285; J1885